=== PATIENT | male | born 2000 | race Caucasian/White ===

== ENCOUNTER 2023-04-19 09:05 | Emergency (ER) | payer BC, SELFPAY ==
[2023-04-19 09:12] VITALS: BP 146/92
--- NOTE | 2023-04-19 09:27 | ED.GENMED ---
History of Present Illness
General
Chief Complaint: Headache
Time Seen by Provider: 04/19/23 09:19
Travel History
Have you had any contact with someone who has COVID-19?: No
Do you have any symptoms of coronavirus? Fever > 100 degrees, chills, cough, shortness of breath, sore throat, loss of taste or smell, muscle aches, or headache?: No
History of Present Illness
History of Present Illness:
HPI: The patient presents with right-sided paresthesias ongoing for the past 4 days. He was seen at [facility] and was seen by neurology there. I did speak to neurology at [facility] which indicates the patient did have a normal brain CT and
normal CTA of the head and neck. Today he came here because he had new right-sided headache/right-sided facial pain.
EXAM:
GENERAL: Well appearing in no distress
HEENT: Moist oral mucosa, old trach scar noted
CARDIOVASCULAR: No murmurs, normal heart rate and rhythm, No chest wall tenderness
PULMONARY: No respiratory distress, breath sounds are clear and equal
ABDOMEN: Soft with no peritoneal signs, no tenderness
NEUROLOGIC: Excellent strength all extremities, no coordination deficits, there is no sensory deficits, there is normal [id number] and normal finger-nose testing
PSYCHIATRIC: Appropriate mental status, normal insight and judgement
EXTREMITIES: Nontender, no edema, moves all extremities equally
SKIN: No rash, no lesions
ED COURSE:
9:30 AM: I initially evaluated patient
NUMBER AND COMPLEXITY OF PROBLEMS ADDRESSED AT THE ENCOUNTER
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
� Acute Exacerbation and/or Progression of Chronic Illness: This is an acute problem
� Differential Diagnosis includes: Complex migraine, CVA, nonspecific paresthesias, anxiety
AMOUNT AND/OR COMPLEXITY OF DATA TO BE REVIEWED AND ANALYZED
� I performed an independent evaluation of and my interpretation is:
EKG:
CT:
X-rays:
Laboratory Studies: Labs including CBC, chemistries, ferritin, C-reactive protein, B12, folate, and TSH were all normal
Other: MRI report reviewed
� Review of other/old records: I reviewed the records from [place] which indicates the patient did have a negative CTA of the head neck as well as negative brain CT
� Clinical information was obtained by an independent historian: I did speak to the father at bedside
� Prescriptions/Medications Considered but not given:
� Further testing considered but not performed:
RISK OF COMPLICATIONS AND/OR MORBIDITY OR MORTALITY OF PATIENT MANAGEMENT
� Social determinants of health affecting care: Lives in [place] but has family in this area.
� Discussion with other providers: I did have Dr. Wallace evaluate the patient in the ED and we did arrange for MRI; at Dr. Wallace request, I did prescribe rizatriptan and recommended iron as ferritin was less than 75.
� Escalation of care including admission/observation vs risk of discharge considered: The patient has no significant change in his clinical condition but appears very well on reassessment at 1:45 PM.
Phy Exam
Physical Exam
Physical Exam:
See HPI
Course
Orders/Labs/Results
Orders:
Orders
04/19/23 10:02
YVON, IgG Reflex to HEp-2 [S] Urgent
Comment: ADD ON
B12 [Vitamin B12] Urgent
Basic Metabolic Panel Urgent
CRP [C-Reactive Protein] Urgent
Complete Blood Count/With Diff Urgent
Erythrocyte Sed Rate Urgent
Comment: ADD ON
Ferritin Urgent
Comment: ADD ON
Folate Urgent
Magnesium Urgent
TSH Reflex To Free T4 Urgent
04/19/23 10:08
MRI Brain [MR Brain W/o & With Contrast] Urgent
Comment:
Reason For Exam: R paresthesias; new SAHU; PLEASE INCLUDE MRV
Recent pill cam endoscopy?: No
04/19/23 10:10
NEUROLOGY CONSULT Urgent
Consulting Provider: Ab Wallace
Was physician already notified: Yes
Reason for consult: R paresthesias; SAHU
04/19/23 10:43
[place] W/o & W Urgent
Reason For Exam: Include MRV
Recent pill cam endoscopy?: No
04/19/23 11:19
Add On- LAB Routine
Comments:: Please add to today's labs or draw as routine
Tests Added?: Ferritin, ESR, YVON
04/19/23 13:13
Rizatriptan Orally Disintegrat [Maxalt Skates Operator (Orally Disintegrating)] 10 mg PO ONCE ONE
Abnormal Lab Results
04/19/23
10:02
WBC 4.1 L 10^3/uL
(4.8-10.8)
Absolute Lymphs (auto) 1.0 L 10^3/uL
(1.2-3.4)
Monocytes % 9.5 H %
(1.7-9.3)
04/19/23 10:02
04/19/23 10:02
Vital Signs
Initial and Last Documented VS:
Initial Vital Signs
Temp Pulse Resp BP Pulse Ox
97.9 F 71 16 146/92 98
04/19/23 09:12 04/19/23 09:12 04/19/23 09:12 04/19/23 09:12 04/19/23 09:12
Last Documented Vital Signs
Temp Pulse Resp BP Pulse Ox
97.9 F 71 16 146/92 98
04/19/23 09:12 04/19/23 09:12 04/19/23 09:12 04/19/23 09:12 04/19/23 09:12
*Critical Care Note
Total Time (30-74mins, 75-104mins- exclusive of procedures): Not Applicable
ED Attending Note
-
Portions of this chart may have been created with voice recognition software.� Occasional wrong word or��sound alike� substitutions may have occurred due to the inherent limitations of voice recognition software.
Discharge Plan
Departure
Referrals:
Anatoly Rose DO [Family Provider] -
Interventions
Interventions:
*Risk Screen - Suicide Last Done: 04/19/23 10:08
*General Assessment Last Done: 04/19/23 10:08
*Neglect/Abuse Screening Last Done: 04/19/23 10:08
ED- Fall Risk Assessment Last Done: 04/19/23 10:08
*ED COVID-19 Vaccine History Last Done: 04/19/23 09:12
ED- Neurological Assessment Last Done: 04/19/23 10:08
[2023-04-19 10:12] LABS: % Basophils 0.7 % (0-2); % Immature Granulocytes 0.2 % (0-0.5); % Lymphocytes 24.4 % (20.5-51.1); % Monocytes 9.5 % (1.7-9.3); % Neutrophils 63.2 % (42.2-75.2); Absolute Eosinophils 0.1 10^3/uL (0-0.7); Absolute Monocytes 0.4 10^3/uL (0.1-0.6); Absolute Neutrophils 2.6 10^3/uL (1.4-6.5); Hematocrit 44.6 % (39.0-52.0); Hemoglobin 15.6 g/dL (13.0-18.0); Mean Corpuscular Hgb 28.9 pg (27.0-31.0); Mean Corpuscular Volume 82.7 fL (80.0-94.0); Mean Platelet Volume 9.9 fL (7.4-10.4); Nucleated Red Blood Cells % 0 % (-); Platelet Count 213 10^3/uL (130-400); Red Blood Cell Count 5.39 10^6/uL (4.70-6.10); Red Cell Dist. Width 11.9 % (11.5-14.5); White Blood Cell Count 4.1 10^3/uL (4.8-10.8)
[2023-04-19 10:27] LABS: Blood Urea Nitrogen 14 mg/dl (9-20); Calcium 9.8 mg/dl (8.4-10.2); Carbon Dioxide 25 mmol/L (22-30); Chloride 106 mmol/L (98-107); Glucose 92 mg/dl (70-99); Magnesium 2.1 mg/dl (1.6-2.3); Sodium 138 mmol/L (135-145); eGFR > 60.00
[2023-04-19 10:30] LABS: C-Reactive Protein < 5.00 mg/L (0.0-10.00)
--- NOTE | 2023-04-19 10:32 | CON.NEURO4 ---
Addendum entered and electronically signed by Ab Wallace MD 04/19/23 14:50:
Studies reviewed.
I have personally examined the patient. I reviewed and agree with the WORKERS COMPENSATION CLAIMS ADJUSTER's Note.
My addenda:
Awake, alert, interactive. No acute distress.
Speech intact.
Follows 2-step requests w/o difficulty. No tremor.
Extra-ocular movements grossly intact.
Facial movements full and symmetric. Hearing intact to normal conversational volume.
Normal UE movements bilaterally.
Neck: full ROM.
Chest: no dyspnea
Heart: no JVD
Ext: (-) Clubbing, (-) Cyanosis, (-) Edema
IMPRESSIONS/RECOMMENDATIONS:
Abrupt onset of right leg and right arm skin sensation change with subsequent development of right posterior head discomfort
Differential diagnosis includes migraine with aura although the patient is not experiencing a severe headache. The patient's mildly low ferritin level may also be producing a skin sensation phenomenon
Check MRI brain
Check MRA head and neck with MRV
Check blood work for metabolic abnormalities
If ferritin level less than 75, provide IV iron and suggest routine iron at bedtime
No indication at this time for the use of antiplatelet agents or antiseizure medications
Provide rizatriptan 10 mg if no evidence of of structural abnormalities producing symptoms to remediate headache
D/W patient / family
All questions answered.
Will continue to follow pending results.
Original Note:
Documented by User: Jennifer Sarah NP 04/19/23 11:20
Consultation - Neurology 4
-
CONSULTING PHYSICIAN: Ab Wallace MD
REFERRING PHYSICIAN: ER/Dr. Gonzalez
DICTATED BY: RODY Paulino
DATE/TIME OF REQUEST: 04/19/23
DATE/TIME OF CONSULTATION: 04/19/23
Reason for Consultation: Numbness
History of Present Illness:
This is a 23-year-old right-handed male who has presented to the hospital with report of right-sided numbness. Patient is a student at [employer] and reports that while driving home from dinner three nights ago on 04/16/23 he suddenly
developed RLE numbness involving the entire leg at once. About 2 hours later, he reports his entire RUE developed the same sensation all at once again. He reports feeling some aches and pains on his right side, a slight swollen feeling, and slight
decreased sensation. He was evaluated at [facility] that evening and had a CT head and CTA head/neck that were negative for any acute abnormalities so he was discharged home. The right-sided sensation change has persisted, and this morning
(04/19/23) he reports that his right neck started to feel slightly numb and he developed a right-sided headache and right eye pressure that he rates a 1/10. He called his PCP who referred him to the ER. Patient repots that his symptoms persist. He
also reports several weeks of nasal congestion with some nasal discharge that he thinks is clear. His roommate has a cat and he has been attributing his nasal congestion to a possible allergic reaction. Additionally, he reports having some
intermittent blurry vision over the past couple of weeks. The blurry vision is in both eyes and lasts for a few seconds. He felt that drinking coffee was triggering it so he stopped drinking coffee, but over the past three days the episodes of
blurry vision have still been occurring. He denies any dizziness, photo/phonophobia, hearing changes, speech/swallow difficulty, weakness, nausea, vomiting, fevers, chest pain, palpitations, and shortness of breath. He denies any history of
headaches or events like this in the past. There is no family history of migraines.
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
Surgical History: Tracheostomy for 9 months at the age of 2 s/p reversal, wisdom teeth removal
Family History: Reviewed and noncontributory.
Social History: Occasional alcohol. Denies tobacco and illicit drug use.
Allergies: No known allergies.
Home Medications: None.
Review of Symptoms:
Patient denies any fever, chest pain, shortness of breath, GI or symptoms.
�Per the HPI.�All systems are reviewed negative except above.
Physical Exam:
The patient is afebrile, abdomen is nondistended, breathing is unlabored, skin is warm and dry, no edema.
NIH Stroke Scale:
I performed the NIH stroke scale on the patient on 04/19/23 at 1045. The patient scored 0 points on the NIH stroke scale assessment, which were assigned as follows: See below.
Neurologic Examination:
The patient is awake, alert and oriented x 3. He is able to follow commands and answer questions appropriately. There is no aphasia or dysarthria. On cranial nerve assessment, pupils are 3 mm bilateral, round and reactive to light and
accommodation. Visual paez are full. Extraocular movements are intact. Facial sensations are intact and bilaterally symmetrical, there is no facial asymmetry. Hearing is intact bilaterally to normal conversation volume. Tongue palate and uvula are
midline. Sternocleidomastoid strengths are full bilaterally. Motor strengths are 5/5 bilateral upper and lower extremities on medical research [place] scale. There is no drift or involuntary movement noted. Deep tendon reflexes are 2+ bilateral
upper and lower extremities and Babinski is absent bilaterally. Sensations of pain, temperature and vibration are intact and bilaterally symmetrical. There was no extinction noted on double simultaneous stimulation. Coordination is intact by finger
to nose bilaterally.
Lab Results: See below.
Neuro Imaging: None.
Differentials for the patient's presentation include:
1. Migraine with aura possibly producing symptoms.
2. Some concern for demyelinating disease.
3. Metabolic abnormality possibly contributing to symptoms.
4. Vascular abnormality possible.
5. Low concern for stroke.
Patient has the following risk factors for their symptoms: None.
Recommendations:
-MRI brain w/ and w/o contrast ordered/pending.
-MRV ordered/pending.
-Checking blood work for metabolic abnormalities, see orders.
Discussed patient care with: Dr. Wallace, the patient, patient's father, Dr. Gonzalez
NIH Stroke Score
Subsequent NIH Scale
Date of Subsequent NIH Scale: 04/19/23
Time of Subsequent NIH Scale: 10:45
NIH Stroke Score
Level of Consciousness: 0 - Alert
LOC Questions: 0-Answers both correctly
LOC Commands: 0-Performs both correctly
Best Horizontal Gaze: 0-Normal
Visual Paez: 0=Normal, no visual loss
Facial Palsy: 0=Normal, symmetrical
Motor - Right Arm: 0=No drift 10 seconds
Motor - Left Arm: 0=No drift 10 seconds
Motor - Right Le-No drift 5 seconds
Motor - Left Le-No drift 5 seconds
Limb Ataxia: 0-Absent
Sensation: 0-Normal
Best Language: 0-No aphasia
Dysarthria: 0-Normal
Extinction and Inattention: 0-No abnormality
Total Score:: 0
Vital Signs and Labs
-
Vital Signs and Labs:
Vital Signs
Temp Pulse Resp BP Pulse Ox
97.9 F 71 16 146/92 98
04/19/23 09:12 04/19/23 09:12 04/19/23 09:12 04/19/23 09:12 04/19/23 09:12
Lab Results
04/19/23 10:02
04/19/23 10:02
Sodium 138 mmol/L (135-145) 04/19/23 10:02
Potassium 4.0 mmol/L (3.5-5.1) 04/19/23 10:02
BUN 14 mg/dl (9-20) 04/19/23 10:02
Glucose 92 mg/dl (70-99) 04/19/23 10:02
Calcium 9.8 mg/dl (8.4-10.2) 04/19/23 10:02

Documented by User: Ab Wallace MD 04/19/23 14:46
NIH Stroke Score
NIH Stroke Score
Total Score:: 0
[2023-04-19 11:01] LABS: TSH Reflex To Free T4 1.87 uIU/ml (0.47-4.68)
[2023-04-19 11:37] LABS: Folate 9.9 ng/ml (2.76-20); Vitamin B12 765 pg/ml (239-931)
[2023-04-19 11:58] LABS: Erythrocyte Sed Rate 7 mm/hour (0-20)
[2023-04-19 12:51] LABS: Ferritin 29.5 ng/ml (17.9-464.0)
[2023-04-19 13:49] VITALS: BP 112/69
[2023-04-19] MEDS: MAXALT MLT (ORALLY DISINTEGRATING) 10 MG PO (14:22)
[2023-04-19] MEDS: FERRLECIT 110 MG IV (14:26)
[2023-04-19 15:28] VITALS: BP 131/84
[2023-04-28 00:11] LABS: ANA, IgG Reflex to HEp-2 Detected (None Detected)
[2023-04-29 17:52] LABS: ANA, HEp-2, IgG <1:80 (<1:80)
== END 2023-04-19 15:38 | disposition home or self-care (01) ==
LOC: EMR 09:05
PROVIDERS: CONSULT PHYSICIAN Psychiatry & Neurology Neurology; EMERGENCY PHYSICIAN Emergency Medicine; FAMILY PHYSICIAN Family Medicine
DX: R20.2 Paresthesia of skin (principal); R20.0 Anesthesia of skin; R51.9 Headache, unspecified; R09.81 Nasal congestion
CPT/HCPCS: 99285; 96365; 70546; 70553; 80048; 82607; 82728; 82746; 83735; 84443; 85025; 85652; 86038; 86039; 86140; A9585; J2916